=== PATIENT | male | born 1995 | race Two or more races ===

== ENCOUNTER → 2017-06-12 | Outpatient (CLI) | payer OTHER ==
[2017-06-12 10:31] LABS: PLATELET COUNT 346 x10^3mcL (130-400)
[2017-06-12 10:38] LABS: BASOPHIL % 4.1 % (0-2)
[2017-06-12 11:05] LABS: ALBUMIN 3.7 g/dL (3.4-5.0); ALKALINE PHOSPHATASE 143 U/L (46-116); ALT/SGPT 61 U/L (16-63); AST/SGOT 29 U/L (15-37); BILIRUBIN TOTAL 0.5 mg/dL (0.20-1.00); CALCIUM 8.7 mg/dL (8.5-10.1); CARBON DIOXIDE 27.8 mmol/L (21-32); CHLORIDE SERUM 102 mmol/L (98-107); CHOLESTEROL 150 mg/dL (<200); CHOLESTEROL/HDL RATIO 3.6; CREATININE SERUM 0.9 mg/dL (0.7-1.3); GFR1 > 60 mL/min; GLUCOSE SERUM 91 mg/dL (74-106); HDL CHOLESTEROL 42 mg/dL (40-60); POTASSIUM SERUM 3.8 mmol/L (3.5-5.1); SODIUM SERUM 140 mmol/L (136-145); TOTAL PROTEIN, SERUM 8.2 g/dL (6.4-8.2); TRIGLYCERIDES 69 mg/dL (<150)
[2017-06-12 11:12] LABS: T3 TOTAL 1.75 ng/mL
[2017-06-12 11:48] LABS: FREE T4 1.12 ng/dL (0.76-1.46); FREE THYROXINE INDEX 2.8 ug/dL (1.4-4.5); T4(THYROXINE) 8.8 ug/dL (4.7-13.3)
== END | disposition home or self-care (01) ==
LOC: LB 09:46
PROVIDERS: Internal Medicine
DX: Z00.00 Encounter for general adult medical examination without abnormal findings (principal)
CPT/HCPCS: 84439

== ENCOUNTER 2017-10-07 20:42 | Emergency (ER) | payer OTHER ==
[~2017-10-07] VITALS: Ht 180.3 cm; Wt 192.8 kg
[2017-10-07 20:57] VITALS: Ht 180.3 cm; Wt 192.8 kg
[2017-10-07 21:41] VITALS: BP 139/90
== END 2017-10-07 21:41 | disposition home or self-care (01) ==
LOC: ED 20:42
DX: S39.012A Strain of muscle, fascia and tendon of lower back, initial encounter (principal); I10 Essential (primary) hypertension; Z88.8 Allergy status to other drugs, medicaments and biological substances; X50.1XXA Overexertion from prolonged static or awkward postures, initial encounter; Y93.89 Activity, other specified; Y92.89 Other specified places as the place of occurrence of the external cause; Y99.8 Other external cause status

== ENCOUNTER 2018-02-01 00:27 | Emergency (ER) | payer OTHER ==
[~2018-02-01] VITALS: Ht 180.3 cm; Wt 184.2 kg
[2018-02-01 00:54] VITALS: Ht 180.3 cm; Wt 184.2 kg
[2018-02-01 01:59] VITALS: BP 154/94
== END 2018-02-01 02:00 | disposition home or self-care (01) ==
LOC: ED 00:27
DX: R09.89 Other specified symptoms and signs involving the circulatory and respiratory systems (principal); Z88.8 Allergy status to other drugs, medicaments and biological substances